=== PATIENT | female | born 1935 | race African-American/Black ===

== ENCOUNTER 2016-12-20 08:32 | Inpatient (IN) | payer MEDICARE, MEDICAID ==
[~2016-12-20] VITALS: Ht 167.6 cm; Wt 66.5 kg
--- NOTE | 2016-12-20 09:21 | RAD ---
Indication weakness. Fall. A single view of the chest was obtained. No prior imaging of the chest is available. Inspiratory effort is suboptimal. Heart size and pulmonary vessels are within normal limits. Slightly tortuous thoracic aorta is noted. A focal infiltrate in either lung is not seen. Significant pleural fluid is not seen. There is no pneumothorax. The visualized bony structures appear grossly intact. IMPRESSION: No acute or focal process seen in the chest
--- NOTE | 2016-12-20 09:30 | PHYS DOC ---
Past Medical History Past Medical History: Dementia, High Cholesterol, Hypertension, Seizure Adult General Chief Complaint Chief Complaint: WEAKNESS/GENERALIZED HPI HPI Patient is a 81 year old female who presents with generalized weakness. History provided by patient's daughter (with whom she lives). She reports patient had gotten up and walked to the bathroom (ambulates without walker/ assistance at baseline) and sat down on the toilet. After she stood up she walked over to the sink to wash her hands, and then became too weak to stand. The daughter grabbed her and held her so as to keep her from falling. Daughter says patient has not been sick and denies any other acute problems. Patient nonverbal, does not follow commands at baseline (h/o dementia). Review of Systems Review of Systems Unable to obtain ROS due to dementia Per daughter: generalized weakness Current Medications Current Medications Allergies Allergies Allergies Coded Allergies Type Severity Reaction Last Updated Verified Penicillins Allergy Intermediate 12/20/16 Yes Physical Exam Physical Exam Constitutional: Well developed, well nourished, no acute distress, non-toxic appearance HENT: Normocephalic, atraumatic, bilateral external ears normal Eyes: PERRL, EOMI, conjunctiva normal, no discharge Neck: Normal range of motion, no stridor Cardiovascular: Heart rate normal, regular rhythm, no murmur Lungs & Thorax: Bilateral breath sounds clear to auscultation Abdomen: Bowel sounds normal, soft, non-distended, no apparent TTP Skin: Warm, dry, no erythema, no rash Extremities: No obvious deformity, no edema Neurologic: Awake, alert, nonverbal, does not follow commands, move BUE spontaneously Current Patient Data Vital Signs Vital Signs Date Time Temp Pulse Resp B/P Pulse Ox O2 Delivery O2 Flow Rate FiO2 12/20/16 08:32 97.6 69 18 134/70 95 Room Air 97.6 Lab Values Laboratory Tests Test 12/20/16 09:43 12/20/16 10:38 White Blood Count 4.9x10^3/uL (4.0-11.0) Red Blood Count 4.33x10^6/uL (3.50-5.40) Hemoglobin 13.0g/dL (12.0-15.5) Hematocrit 39.3% (36.0-47.0) Mean Corpuscular Volume 91fL (79-100) Mean Corpuscular Hemoglobin 30pg (25-35) Mean Corpuscular Hemoglobin Concent 33g/dL (31-37) Red Cell Distribution Width 12.8% (11.5-14.5) Platelet Count 165x10^3/uL (140-400) Neutrophils (%) (Auto) 54% (31-73) Lymphocytes (%) (Auto) 31% (24-48) Monocytes (%) (Auto) 8% (0-9) Eosinophils (%) (Auto) 7% (0-3) H Basophils (%) (Auto) 1% (0-3) Neutrophils # (Auto) 2.7x10^3uL (1.8-7.7) Lymphocytes # (Auto) 1.5x10^3/uL (1.0-4.8) Monocytes # (Auto) 0.4x10^3/uL (0.0-1.1) Eosinophils # (Auto) 0.3x10^3/uL (0.0-0.7) Basophils # (Auto) 0.0x10^3/uL (0.0-0.2) Sodium Level 146mmol/L (136-145) H Potassium Level 3.8mmol/L (3.5-5.1) Chloride Level 106mmol/L (98-107) Carbon Dioxide Level 32mmol/L (21-32) Anion Gap 8 (6-14) Blood Urea Nitrogen 19mg/dL (7-20) Creatinine 1.1mg/dL (0.6-1.0) H Estimated GFR (Cockcroft-Gault) 47.8 BUN/Creatinine Ratio 17 (6-20) Glucose Level 89mg/dL (70-99) Calcium Level 9.8mg/dL (8.5-10.1) Total Bilirubin 0.8mg/dL (0.2-1.0) Aspartate Amino Transferase (AST) 14U/L (15-37) L Alanine Aminotransferase (ALT) 18U/L (14-59) Alkaline Phosphatase 89U/L (46-116) Total Protein 7.9g/dL (6.4-8.2) Albumin 3.7g/dL (3.4-5.0) Albumin/Globulin Ratio 0.9 (1.0-1.7) L Urine Collection Type Unknown Urine Color Yellow Urine Clarity Clear Urine pH 6.0 Urine Specific [place] 1.025 Urine Protein Negativemg/dL (NEG-TRACE) Urine Glucose (UA) Negativemg/dL (NEG) Urine Ketones (Stick) Tracemg/dL (NEG) Urine Blood Negative (NEG) Urine Nitrite Positive (NEG) Urine Bilirubin Small (NEG) Urine Urobilinogen Dipstick 1.0mg/dL (0.2 mg/dL) Urine Leukocyte Esterase Small (NEG) Urine RBC 1-2/HPF (0-2) Urine WBC 5-10/HPF (0-4) Urine Squamous Epithelial Cells Few/LPF Urine Bacteria Many/HPF (0-FEW) Urine Mucus Slight/LPF Laboratory Tests 12/20/16 09:43 Laboratory Tests 12/20/16 09:43 EKG EKG EKG (my read): sinus rhythm, rate 64, LAD, intervals wnl, no acute ischemic changes Radiology/Procedures Radiology/Procedures CXR: IMPRESSION: No acute or focal process seen in the chest CT head: IMPRESSION: Chronic changes. Intracranially no acute finding is seen Course & Med Decision Making Course & Med Decision Making Pertinent Labs and Imaging studies reviewed. (See chart for details) Patient is 81-year-old female who presents with generalized weakness. Will check EKG, chest x-ray, CT head, labs to evaluate. Imaging results as above. EKG okay per my read. Imaging results as above. Blood work unremarkable, UA indicative of UTI. Dose of Rocephin ordered. Discussed results with patient's daughter. As she is too weak to ambulate and lives at home with her daughter who is unable to care for her when she is this weak, she will need admission to the hospital. Discussed with Dr. Flores, will admit under her care for further evaluation and treatment. Dragon Disclaimer Dragon Disclaimer This electronic medical record was generated, in whole or in part, using a voice recognition dictation system. Departure Departure Impression: Primary Impression: UTI (urinary tract infection) Additional Impressions: Weakness Unable to ambulate Disposition: ADMITTED INPATIENT Admitting Physician: Mary Flores Condition: STABLE Problem Qualifiers PRAKASH FABIAN MD Dec 20, 2016 09:30
[2016-12-20 09:57] LABS: BASO % 1 % (0-3); EOS % 7 % (0-3); HEMATOCRIT 39.3 % (36.0-47.0); LYMPH # 1.5 x10^3/uL (1.0-4.8); LYMPH % 31 % (24-48); MEAN CORPUSCULAR HEMOGLOBIN 30 pg (25-35); MEAN CORPUSCULAR HGB CONC 33 g/dL (31-37); MEAN CORPUSCULAR VOLUME 91 fL (79-100); MONO % 8 % (0-9); NEUT % 54 % (31-73); PLATELET COUNT 165 x10^3/uL (140-400); RED BLOOD COUNT 4.33 x10^6/uL (3.50-5.40); RED CELL DISTRIBUTION WIDTH 12.8 % (11.5-14.5); WHITE BLOOD COUNT 4.9 x10^3/uL (4.0-11.0)
[2016-12-20 10:10] LABS: CALCIUM 9.8 mg/dL (8.5-10.1); CREATININE 1.1 mg/dL (0.6-1.0); GFR 47.8; POTASSIUM 3.8 mmol/L (3.5-5.1)
[2016-12-20 10:16] LABS: ALBUMIN 3.7 g/dL (3.4-5.0); ALBUMIN/GLOBULIN RATIO 0.9 (1.0-1.7); TOTAL BILIRUBIN 0.8 mg/dL (0.2-1.0); TOTAL PROTEIN 7.9 g/dL (6.4-8.2)
[2016-12-20 11:09] LABS: BILIRUBIN,URINE SMALL (NEG); GLUCOSE,URINE NEGATIVE (NEG); NITRITE,URINE POSITIVE (NEG); PROTEIN,URINE NEGATIVE (NEG-TRACE)
--- NOTE | 2016-12-20 11:20 | EKG ---
[facility] [address] [place] [address] Test Date: 2016-12-20 Test Time: 09:18:03 Pat Name: RADHA PHIPPS Department: Room: Gender: F Student Development Dean: : [id number] Requested By: PRAKASH FABIAN Order Number: [id number] Reading MD: Measurements Intervals [place] Rate: 64 P: 54 GA: 186 QRS: -12 QRSD: 78 T: 49 QT: 404 QTc: 421 Interpretive Statements SINUS RHYTHM LEFTWARD AXIS QRS(T) CONTOUR ABNORMALITY CONSIDER ANTEROSEPTAL MYOCARDIAL DAMAGE RI6.01 Unconfirmed report No previous ECG available for comparison
[2016-12-20 11:35] LABS: BACTERIA,URINE MANY /HPF (0-FEW); SQUAMOUS EPITHELIAL CELL,UR FEW /LPF
--- NOTE | 2016-12-20 11:42 | RAD ---
Indication weakness. Change in mental status. Prior history of seizures. Noncontrast images of the head were obtained. No prior imaging of the head is available. The calvarium appears unremarkable. The visualized paranasal sinuses appear normal. There is no subdural or epidural hematoma. There is some underlying atrophy. There is some increased lucency in the deep white matter likely reflecting microvascular disease. There is no mass or midline shift. No hemorrhage is seen. There is some increased density, symmetric, involving both globes.. This may be artifactual. Clinical correlation as to visual difficulty advised. IMPRESSION: Chronic changes. Intracranially no acute finding is seen PQRS Compliance Statement: One or more of the following individualized dose reduction techniques were utilized for this examination: 1. Automated exposure control 2. Adjustment of the mA and/or kV according to patient size 3. Use of iterative reconstruction technique
[2016-12-20] MEDS ORDERED: ONDANSETRON PF 4 MG/2 ML VIAL. IV PRN ×2 (12:15→14:49)
[2016-12-20] MEDS ORDERED: CEFTRIAXONE 1GM IVPB FOR OMNI 50 ML IV ONE (12:15)
[2016-12-20] MEDS ORDERED: ACETAMINOPHEN 325 MG TABLET. PO PRN (12:15)
[2016-12-20 13:00] VITALS: BP 160/46
[2016-12-20] MEDS ORDERED: MEMA10TA PO (14:08)
[2016-12-20] MEDS ORDERED: LISI20TA PO (14:08)
[2016-12-20] MEDS ORDERED: LOSA1TAB18 PO (14:08)
[2016-12-20] MEDS ORDERED: DONE10TA34 PO (14:08)
[2016-12-20] MEDS ORDERED: SIMV20TA PO (14:08)
[2016-12-20] MEDS ORDERED: LEVE500T56 PO (14:08)
[2016-12-20] MEDS ORDERED: ASPI81TA2 PO (14:08)
[2016-12-20] MEDS ORDERED: NIFE90TA9 PO (14:08)
[2016-12-20 15:00] VITALS: BP 146/66
--- NOTE | 2016-12-20 15:37 | PDOC1 ---
History and Physical Date of Admission Date of Admission DATE: 12/20/16 TIME: 15:29 Identification/Chief Complaint Chief Complaint weak Source Source: Caregiver, Chart review History of Present Illness History of Present Illness 81 y./o AA female, accompanied by dtr today, lives at home with dtr, so weak today, cant do her usual daily activities,. AT ER, found UTI, all labs ok, PT hence admitted. DTr seems to be hesitant to snu but is agreeable if really needed. She is trying to feed her mom, pt does not verbalize anything though not aggressive and not in distress but does not know where she is. HAs dementia based on home meds, PCP Dr. Funez Past Medical History Cardiovascular: HTN, Hyperlipidemia CENTRAL NERVOUS SYSTEM: Dementia Past Surgical History Past Surgical History: No pertinent history Family History Family History: Family History Unknown Social History Smoke: No ALCOHOL: none Drugs: None Current Problem List Problem List Problems Medical Problems: (1) Unable to ambulate Status: Acute (2) UTI (urinary tract infection) Status: Acute (3) Weakness Status: Acute Problems: Current Medications Current Medications Current Medications Ceftriaxone Sodium (Rocephin 1gm Ivpb For Omni) 50 ml @ 100 mls/hr 1X ONCE IV Last administered on 12/20/16t 12:20; Start 12/20/16 at 12:15; Stop 12/20/16 at 12:44; Status DC Ondansetron HCl (Zofran) 4 mg PRN Q8HRS PRN IV NAUSEA/VOMITING; Start 12/20/16 at 12:15; Stop 12/20/16 at 14:51; Status DC Acetaminophen (Tylenol) 650 mg PRN Q4HRS PRN PO FEVER; Start 12/20/16 at 12:15 ; Stop 12/21/16 at 12:14 Ondansetron HCl (Zofran) 4 mg PRN Q6HRS PRN IV NAUSEA/VOMITING; Start 12/20/16 at 14:49 Aspirin (Children'S Aspirin) 81 mg DAILY PO ; Start 12/21/16 at 09:00 Donepezil HCl (Aricept) 10 mg QHS PO ; Start 12/20/16 at 21:00 Levetiracetam (Keppra) 500 mg BID PO ; Start 12/20/16 at 21:00 Lisinopril (Prinivil) 20 mg DAILY PO ; Start 12/21/16 at 09:00 Memantine (Namenda) 10 mg BID PO ; Start 12/20/16 at 21:00 Simvastatin (Zocor) 20 mg QHS PO ; Start 12/20/16 at 21:00 Losartan Potassium (Cozaar) 100 mg DAILY PO ; Start 12/21/16 at 09:00 Nifedipine 90 mg 90 mg DAILY PO ; Start 12/21/16 at 09:00 Ceftriaxone Sodium/Sodium Chloride (Rocephin/Iv Sodium Chloride 0.9% 50ml) 50 ml @ 100 mls/hr Q24H IV ; Start 12/21/16 at 12:00 Hydrochlorothiazide (Microzide) 12.5 mg DAILY PO ; Start 12/21/16 at 09:00 Active Scripts Active Reported Aricept (Donepezil Hcl) 10 Mg Tablet 1 Tab PO QHS Zocor (Simvastatin) 20 Mg Tablet 1 Tab PO QHS Prinivil (Lisinopril) 20 Mg Tablet 1 Tab PO DAILY Nifedipine Er (Nifedipine) 90 Mg Tab.er.24 90 Mg PO DAILY Aspirin 81 Mg Tab.chew 1 Tab PO DAILY Losartan-Hctz 100-12.5 Mg Tab (Losartan/Hydrochlorothiazide) 1 Each Tablet 1 Tab PO DAILY Namenda (Memantine Hcl) 10 Mg Tablet 1 Tab PO BID Keppra (Levetiracetam) 500 Mg Tablet 1.5 Tab PO BID Allergies Allergies: Coded Allergies: Penicillins (Verified Allergy, Intermediate, 12/20/16) ROS Review of System cant be obtained- has dementia Physical Exam General: Alert, Cooperative, No acute distress HEENT: Atraumatic, PERRLA, EOMI Lungs: Clear to auscultation, Normal air movement Heart: S1S2, RRR, no thrills, no rubs, no gallops, no murmurs Cardiovascular: S1 Breasts: Normal, Rt breast nml w/o mass, Lt breast nml w/o mass, Nipples normal Rectal Exam: not examined PELVIC: Nml ext genitalia Extremities: No clubbing, No cyanosis, No edema, Normal pulses, No tenderness/ swelling Skin: No rashes, No breakdown, No significant lesion Psych/Mental Status: Mental status NL, Mood NL Vitals Vitals Vital Signs Date Time Temp Pulse Resp B/P Pulse Ox O2 Delivery O2 Flow Rate FiO2 2/18/17 13:05 Room Air 12/20/16 13:00 97.7 56 16 160/46 93 97.7 Labs Labs Laboratory Tests Test 12/20/16 09:43 12/20/16 10:38 White Blood Count 4.9x10^3/uL (4.0-11.0) Red Blood Count 4.33x10^6/uL (3.50-5.40) Hemoglobin 13.0g/dL (12.0-15.5) Hematocrit 39.3% (36.0-47.0) Mean Corpuscular Volume 91fL (79-100) Mean Corpuscular Hemoglobin 30pg (25-35) Mean Corpuscular Hemoglobin Concent 33g/dL (31-37) Red Cell Distribution Width 12.8% (11.5-14.5) Platelet Count 165x10^3/uL (140-400) Neutrophils (%) (Auto) 54% (31-73) Lymphocytes (%) (Auto) 31% (24-48) Monocytes (%) (Auto) 8% (0-9) Eosinophils (%) (Auto) 7% (0-3) Basophils (%) (Auto) 1% (0-3) Neutrophils # (Auto) 2.7x10^3uL (1.8-7.7) Lymphocytes # (Auto) 1.5x10^3/uL (1.0-4.8) Monocytes # (Auto) 0.4x10^3/uL (0.0-1.1) Eosinophils # (Auto) 0.3x10^3/uL (0.0-0.7) Basophils # (Auto) 0.0x10^3/uL (0.0-0.2) Sodium Level 146mmol/L (136-145) Potassium Level 3.8mmol/L (3.5-5.1) Chloride Level 106mmol/L (98-107) Carbon Dioxide Level 32mmol/L (21-32) Anion Gap 8 (6-14) Blood Urea Nitrogen 19mg/dL (7-20) Creatinine 1.1mg/dL (0.6-1.0) Estimated GFR (Cockcroft-Gault) 47.8 BUN/Creatinine Ratio 17 (6-20) Glucose Level 89mg/dL (70-99) Calcium Level 9.8mg/dL (8.5-10.1) Total Bilirubin 0.8mg/dL (0.2-1.0) Aspartate Amino Transf (AST/SGOT) 14U/L (15-37) Alanine Aminotransferase (ALT/SGPT) 18U/L (14-59) Alkaline Phosphatase 89U/L (46-116) Total Protein 7.9g/dL (6.4-8.2) Albumin 3.7g/dL (3.4-5.0) Albumin/Globulin Ratio 0.9 (1.0-1.7) Urine Collection Type Unknown Urine Color Yellow Urine Clarity Clear Urine pH 6.0 Urine Specific [place] 1.025 Urine Protein Negativemg/dL (NEG-TRACE) Urine Glucose (UA) Negativemg/dL (NEG) Urine Ketones (Stick) Tracemg/dL (NEG) Urine Blood Negative (NEG) Urine Nitrite Positive (NEG) Urine Bilirubin Small (NEG) Urine Urobilinogen Dipstick 1.0mg/dL (0.2 mg/dL) Urine Leukocyte Esterase Small (NEG) Urine RBC 1-2/HPF (0-2) Urine WBC 5-10/HPF (0-4) Urine Squamous Epithelial Cells Few/LPF Urine Bacteria Many/HPF (0-FEW) Urine Mucus Slight/LPF Laboratory Tests Test 12/20/16 09:43 12/20/16 10:38 White Blood Count 4.9x10^3/uL (4.0-11.0) Red Blood Count 4.33x10^6/uL (3.50-5.40) Hemoglobin 13.0g/dL (12.0-15.5) Hematocrit 39.3% (36.0-47.0) Mean Corpuscular Volume 91fL (79-100) Mean Corpuscular Hemoglobin 30pg (25-35) Mean Corpuscular Hemoglobin Concent 33g/dL (31-37) Red Cell Distribution Width 12.8% (11.5-14.5) Platelet Count 165x10^3/uL (140-400) Neutrophils (%) (Auto) 54% (31-73) Lymphocytes (%) (Auto) 31% (24-48) Monocytes (%) (Auto) 8% (0-9) Eosinophils (%) (Auto) 7% (0-3) Basophils (%) (Auto) 1% (0-3) Neutrophils # (Auto) 2.7x10^3uL (1.8-7.7) Lymphocytes # (Auto) 1.5x10^3/uL (1.0-4.8) Monocytes # (Auto) 0.4x10^3/uL (0.0-1.1) Eosinophils # (Auto) 0.3x10^3/uL (0.0-0.7) Basophils # (Auto) 0.0x10^3/uL (0.0-0.2) Sodium Level 146mmol/L (136-145) Potassium Level 3.8mmol/L (3.5-5.1) Chloride Level 106mmol/L (98-107) Carbon Dioxide Level 32mmol/L (21-32) Anion Gap 8 (6-14) Blood Urea Nitrogen 19mg/dL (7-20) Creatinine 1.1mg/dL (0.6-1.0) Estimated GFR (Cockcroft-Gault) 47.8 BUN/Creatinine Ratio 17 (6-20) Glucose Level 89mg/dL (70-99) Calcium Level 9.8mg/dL (8.5-10.1) Total Bilirubin 0.8mg/dL (0.2-1.0) Aspartate Amino Transf (AST/SGOT) 14U/L (15-37) Alanine Aminotransferase (ALT/SGPT) 18U/L (14-59) Alkaline Phosphatase 89U/L (46-116) Total Protein 7.9g/dL (6.4-8.2) Albumin 3.7g/dL (3.4-5.0) Albumin/Globulin Ratio 0.9 (1.0-1.7) Urine Collection Type Unknown Urine Color Yellow Urine Clarity Clear Urine pH 6.0 Urine Specific [place] 1.025 Urine Protein Negativemg/dL (NEG-TRACE) Urine Glucose (UA) Negativemg/dL (NEG) Urine Ketones (Stick) Tracemg/dL (NEG) Urine Blood Negative (NEG) Urine Nitrite Positive (NEG) Urine Bilirubin Small (NEG) Urine Urobilinogen Dipstick 1.0mg/dL (0.2 mg/dL) Urine Leukocyte Esterase Small (NEG) Urine RBC 1-2/HPF (0-2) Urine WBC 5-10/HPF (0-4) Urine Squamous Epithelial Cells Few/LPF Urine Bacteria Many/HPF (0-FEW) Urine Mucus Slight/LPF VTE Prophylaxis Ordered VTE Prophylaxis Devices: Yes VTE Pharmacological Prophylaxi: Yes Assessment/Plan Assessment/Plan 1. UTI in a geriatric 2, Gen weakness 3. Metabolic encephalopathy sec to dementia and infection 4. HTN 5. Advanced dementia 6. Allergy to PCN but tolerated rocephin fine PLAn: COnt iV rocephin Urine cx PT/OT Resume home meds SW SNU screen Dw dtr at bedside and RN MURTAZA ALEMAN MD Dec 20, 2016 15:37
--- NOTE | 2016-12-20 16:39 | ACF ---
Admission Forms Criteria URINARY COMPLICATIONS Clinical Indications for Inpatient Care (Place 'X' for any and all applicable criteria): Ongoing inpatient care may be indicated for urinary complications with ANY ONE of the following: [X]I. Urinary tract infection requiring inpatient care as indicated by ANY ONE of the following(8)(19)(20): [ ]a) Severe symptoms (eg, high fever, severe pain) [ ]b) Vomiting or dehydration requiring ongoing inpatient care [X]c) IV antibiotic needs that cannot be managed at lower level of care [ ]d) Hemodynamic instability [ ]e) Obstruction of collecting system by stone or tumor [ ]II. Urinary retention requiring drainage or surgery (3)(4)(5)(17)(18) [ ]III. Renal failure (Use Renal Failure Criteria for further information.) [ ]IV. Oliguria(30) [ ]V. Post obstructive diuresis requiring close monitoring of urine output and intravenous compensation for excessive fluid losses(33) Extended stay beyond goal length of stay for primary condition may be needed until ALL of the following are present(3)(4)(5)(8): [ ]a) Renal function (creatinine) at baseline, or daily decreases in creatinine consistent with renal function return [ ]b) Voiding adequately or with urinary catheter or percutaneous suprapubic tube and management regimen in place that is performable at lower level of care. [ ]c) Urine output adequate [ ]d) Fever absent or resolving [ ]e) Infection absent or treatable at next level of care The original [employer] content created by [employer] has been revised. The portions of the content which have been revised are identified through the use of italic text or in bold, and [facility] has neither reviewed nor approved the modified material. All other unmodified content is copyright [employer] Please see references footnoted in the original [email or web address] edition 2016 Admission Criteria Met?: Yes MEHUL ENCISO Dec 20, 2016 16:39
[2016-12-20 19:25] VITALS: BP 123/57
[2016-12-20] MEDS: LEVETIRACETAM 500 MG TABLET PO SCH (20:44)
[2016-12-20] MEDS: MEMANTINE 10 MG TABLET. PO SCH (20:45)
[2016-12-20] MEDS: DONEPEZIL HCL 10 MG TABLET. PO SCH (20:45)
[2016-12-20] MEDS: SIMVASTATIN 20 MG TABLET PO SCH (20:45)
[2016-12-20] MEDS ORDERED: LEVETIRACETAM 500 MG TABLET PO SCH (21:00)
[2016-12-20 23:25] VITALS: BP 118/58
[2016-12-21 03:25] VITALS: BP 116/56
[2016-12-21 06:17] LABS: BASO % 1 % (0-3); EOS % 6 % (0-3); HEMATOCRIT 35.7 % (36.0-47.0); HEMOGLOBIN 11.7 g/dL (12.0-15.5); LYMPH # 1.3 x10^3/uL (1.0-4.8); LYMPH % 33 % (24-48); MEAN CORPUSCULAR HEMOGLOBIN 30 pg (25-35); MEAN CORPUSCULAR HGB CONC 33 g/dL (31-37); MEAN CORPUSCULAR VOLUME 93 fL (79-100); MONO % 9 % (0-9); NEUT % 52 % (31-73); PLATELET COUNT 145 x10^3/uL (140-400); RED BLOOD COUNT 3.86 x10^6/uL (3.50-5.40); RED CELL DISTRIBUTION WIDTH 12.9 % (11.5-14.5); WHITE BLOOD COUNT 4.1 x10^3/uL (4.0-11.0)
[2016-12-21 07:00] VITALS: BP 108/63
[2016-12-21 07:12] LABS: CALCIUM 9.2 mg/dL (8.5-10.1); CREATININE 0.9 mg/dL (0.6-1.0); GFR 72.9; POTASSIUM 4.1 mmol/L (3.5-5.1)
[2016-12-21] MEDS: HYDROCHLOROTHIAZIDE 12.5 MG CAPSULE. PO SCH (09:00)
[2016-12-21] MEDS: LISINOPRIL 20 MG TABLET PO SCH (09:00)
[2016-12-21] MEDS: ASPIRIN 81 MG TAB.CHEW PO SCH (09:27)
[2016-12-21] MEDS: MEMANTINE 10 MG TABLET. PO SCH ×2 (09:27→21:09)
[2016-12-21] MEDS: LOSARTAN POTASSIUM 50 MG TABLET. PO SCH (09:28)
[2016-12-21] MEDS: NIFEDIPINE ER 30 MG TAB.ER.24H PO SCH (09:28)
[2016-12-21] MEDS: LEVETIRACETAM 500 MG TABLET PO SCH ×2 (09:29→21:06)
[2016-12-21 11:22] VITALS: BP 112/62
--- NOTE | 2016-12-21 11:27 | PDOC ---
PROGRESS NOTES Chief Complaint Chief Complaint 1. UTI in a geriatric 2, Gen weakness 3. Metabolic encephalopathy sec to dementia and infection 4. HTN 5. Advanced dementia 6. Allergy to PCN but tolerated rocephin fine 7. Hypernatremia sec to poor pO History of Present Illness History of Present Illness Dtr not at bedside Na 150, minimal PO Pt might sometimes need aid to feed Confused, playing with the sheets with her fingers Urine cx still pending NO fevers or white ct PLAn: COnt IV rocpehin - tolerating PCN fine despite documenetd allergy to PCN Await urine cx Encourage PO - to address hypernatremia SW - if dtr will agree to SNU - I may have my doubts but dtr might be open to this Vitals Vitals Vital Signs Date Time Temp Pulse Resp B/P Pulse Ox O2 Delivery O2 Flow Rate FiO2 12/21/16 11:22 98.8 83 16 112/62 99 Room Air 98.8 Physical Exam General: Alert, Cooperative, No acute distress Extremities: No clubbing, No cyanosis, No edema, Normal pulses, No tenderness/ swelling Skin: No rashes, No breakdown, No significant lesion Labs LABS Laboratory Tests Test 12/21/16 05:25 White Blood Count 4.1x10^3/uL (4.0-11.0) Red Blood Count 3.86x10^6/uL (3.50-5.40) Hemoglobin 11.7g/dL (12.0-15.5) Hematocrit 35.7% (36.0-47.0) Mean Corpuscular Volume 93fL (79-100) Mean Corpuscular Hemoglobin 30pg (25-35) Mean Corpuscular Hemoglobin Concent 33g/dL (31-37) Red Cell Distribution Width 12.9% (11.5-14.5) Platelet Count 145x10^3/uL (140-400) Neutrophils (%) (Auto) 52% (31-73) Lymphocytes (%) (Auto) 33% (24-48) Monocytes (%) (Auto) 9% (0-9) Eosinophils (%) (Auto) 6% (0-3) Basophils (%) (Auto) 1% (0-3) Neutrophils # (Auto) 2.1x10^3uL (1.8-7.7) Lymphocytes # (Auto) 1.3x10^3/uL (1.0-4.8) Monocytes # (Auto) 0.3x10^3/uL (0.0-1.1) Eosinophils # (Auto) 0.3x10^3/uL (0.0-0.7) Basophils # (Auto) 0.0x10^3/uL (0.0-0.2) Sodium Level 150mmol/L (136-145) Potassium Level 4.1mmol/L (3.5-5.1) Chloride Level 111mmol/L (98-107) Carbon Dioxide Level 28mmol/L (21-32) Anion Gap 11 (6-14) Blood Urea Nitrogen 17mg/dL (7-20) Creatinine 0.9mg/dL (0.6-1.0) Estimated GFR (Cockcroft-Gault) 72.9 Glucose Level 86mg/dL (70-99) Calcium Level 9.2mg/dL (8.5-10.1) Review of Systems Review of Systems cant be obtained -dementia Assessment and Plan Assessmemt and Plan Problems Medical Problems: (1) Unable to ambulate Status: Acute (2) UTI (urinary tract infection) Status: Acute (3) Weakness Status: Acute Problems: Comment Review of Relevant I have reviewed the following items adam (where applicable) has been applied. Labs Laboratory Tests Test 12/20/16 09:43 12/20/16 10:38 12/21/16 05:25 White Blood Count 4.9x10^3/uL (4.0-11.0) 4.1x10^3/uL (4.0-11.0) Red Blood Count 4.33x10^6/uL (3.50-5.40) 3.86x10^6/uL (3.50-5.40) Hemoglobin 13.0g/dL (12.0-15.5) 11.7g/dL (12.0-15.5) Hematocrit 39.3% (36.0-47.0) 35.7% (36.0-47.0) Mean Corpuscular Volume 91fL (79-100) 93fL (79-100) Mean Corpuscular Hemoglobin 30pg (25-35) 30pg (25-35) Mean Corpuscular Hemoglobin Concent 33g/dL (31-37) 33g/dL (31-37) Red Cell Distribution Width 12.8% (11.5-14.5) 12.9% (11.5-14.5) Platelet Count 165x10^3/uL (140-400) 145x10^3/uL (140-400) Neutrophils (%) (Auto) 54% (31-73) 52% (31-73) Lymphocytes (%) (Auto) 31% (24-48) 33% (24-48) Monocytes (%) (Auto) 8% (0-9) 9% (0-9) Eosinophils (%) (Auto) 7% (0-3) 6% (0-3) Basophils (%) (Auto) 1% (0-3) 1% (0-3) Neutrophils # (Auto) 2.7x10^3uL (1.8-7.7) 2.1x10^3uL (1.8-7.7) Lymphocytes # (Auto) 1.5x10^3/uL (1.0-4.8) 1.3x10^3/uL (1.0-4.8) Monocytes # (Auto) 0.4x10^3/uL (0.0-1.1) 0.3x10^3/uL (0.0-1.1) Eosinophils # (Auto) 0.3x10^3/uL (0.0-0.7) 0.3x10^3/uL (0.0-0.7) Basophils # (Auto) 0.0x10^3/uL (0.0-0.2) 0.0x10^3/uL (0.0-0.2) Sodium Level 146mmol/L (136-145) 150mmol/L (136-145) Potassium Level 3.8mmol/L (3.5-5.1) 4.1mmol/L (3.5-5.1) Chloride Level 106mmol/L (98-107) 111mmol/L (98-107) Carbon Dioxide Level 32mmol/L (21-32) 28mmol/L (21-32) Anion Gap 8 (6-14) 11 (6-14) Blood Urea Nitrogen 19mg/dL (7-20) 17mg/dL (7-20) Creatinine 1.1mg/dL (0.6-1.0) 0.9mg/dL (0.6-1.0) Estimated GFR (Cockcroft-Gault) 47.8 72.9 BUN/Creatinine Ratio 17 (6-20) Glucose Level 89mg/dL (70-99) 86mg/dL (70-99) Calcium Level 9.8mg/dL (8.5-10.1) 9.2mg/dL (8.5-10.1) Total Bilirubin 0.8mg/dL (0.2-1.0) Aspartate Amino Transf (AST/SGOT) 14U/L (15-37) Alanine Aminotransferase (ALT/SGPT) 18U/L (14-59) Alkaline Phosphatase 89U/L (46-116) Total Protein 7.9g/dL (6.4-8.2) Albumin 3.7g/dL (3.4-5.0) Albumin/Globulin Ratio 0.9 (1.0-1.7) Urine Collection Type Unknown Urine Color Yellow Urine Clarity Clear Urine pH 6.0 Urine Specific [place] 1.025 Urine Protein Negativemg/dL (NEG-TRACE) Urine Glucose (UA) Negativemg/dL (NEG) Urine Ketones (Stick) Tracemg/dL (NEG) Urine Blood Negative (NEG) Urine Nitrite Positive (NEG) Urine Bilirubin Small (NEG) Urine Urobilinogen Dipstick 1.0mg/dL (0.2 mg/dL) Urine Leukocyte Esterase Small (NEG) Urine RBC 1-2/HPF (0-2) Urine WBC 5-10/HPF (0-4) Urine Squamous Epithelial Cells Few/LPF Urine Bacteria Many/HPF (0-FEW) Urine Mucus Slight/LPF Laboratory Tests Test 12/21/16 05:25 White Blood Count 4.1x10^3/uL (4.0-11.0) Red Blood Count 3.86x10^6/uL (3.50-5.40) Hemoglobin 11.7g/dL (12.0-15.5) Hematocrit 35.7% (36.0-47.0) Mean Corpuscular Volume 93fL (79-100) Mean Corpuscular Hemoglobin 30pg (25-35) Mean Corpuscular Hemoglobin Concent 33g/dL (31-37) Red Cell Distribution Width 12.9% (11.5-14.5) Platelet Count 145x10^3/uL (140-400) Neutrophils (%) (Auto) 52% (31-73) Lymphocytes (%) (Auto) 33% (24-48) Monocytes (%) (Auto) 9% (0-9) Eosinophils (%) (Auto) 6% (0-3) Basophils (%) (Auto) 1% (0-3) Neutrophils # (Auto) 2.1x10^3uL (1.8-7.7) Lymphocytes # (Auto) 1.3x10^3/uL (1.0-4.8) Monocytes # (Auto) 0.3x10^3/uL (0.0-1.1) Eosinophils # (Auto) 0.3x10^3/uL (0.0-0.7) Basophils # (Auto) 0.0x10^3/uL (0.0-0.2) Sodium Level 150mmol/L (136-145) Potassium Level 4.1mmol/L (3.5-5.1) Chloride Level 111mmol/L (98-107) Carbon Dioxide Level 28mmol/L (21-32) Anion Gap 11 (6-14) Blood Urea Nitrogen 17mg/dL (7-20) Creatinine 0.9mg/dL (0.6-1.0) Estimated GFR (Cockcroft-Gault) 72.9 Glucose Level 86mg/dL (70-99) Calcium Level 9.2mg/dL (8.5-10.1) Medications Current Medications Ceftriaxone Sodium (Rocephin 1gm Ivpb For Omni) 50 ml @ 100 mls/hr 1X ONCE IV Last administered on 12/20/16t 12:20; Start 12/20/16 at 12:15; Stop 12/20/16 at 12:44; Status DC Ondansetron HCl (Zofran) 4 mg PRN Q8HRS PRN IV NAUSEA/VOMITING; Start 12/20/16 at 12:15; Stop 12/20/16 at 14:51; Status DC Acetaminophen (Tylenol) 650 mg PRN Q4HRS PRN PO FEVER; Start 12/20/16 at 12:15 ; Stop 12/21/16 at 12:14 Ondansetron HCl (Zofran) 4 mg PRN Q6HRS PRN IV NAUSEA/VOMITING; Start 12/20/16 at 14:49 Aspirin (Children'S Aspirin) 81 mg DAILY PO Last administered on 12/21/16 09: 27; Start 12/21/16 at 09:00 Donepezil HCl (Aricept) 10 mg QHS PO Last administered on 12/20/16 20:45; Start 12/20/16 at 21:00 Levetiracetam (Keppra) 500 mg BID PO ; Start 12/20/16 at 21:00; Stop 12/20/16 at 21:00; Status DC Lisinopril (Prinivil) 20 mg DAILY PO ; Start 12/21/16 at 09:00 Memantine (Namenda) 10 mg BID PO Last administered on 12/21/16 09:27; Start at 21:00 Simvastatin (Zocor) 20 mg QHS PO Last administered on 12/20/16 20:45; Start at 21:00 Losartan Potassium (Cozaar) 100 mg DAILY PO Last administered on 12/21/16 09: 28; Start 12/21/16 at 09:00 Nifedipine 90 mg 90 mg DAILY PO Last administered on 12/21/16 09:28; Start at 09:00 Ceftriaxone Sodium/Sodium Chloride (Rocephin/Iv Sodium Chloride 0.9% 50ml) 50 ml @ 100 mls/hr Q24H IV ; Start 12/21/16 at 12:00 Hydrochlorothiazide (Microzide) 12.5 mg DAILY PO ; Start 12/21/16 at 09:00 Levetiracetam (Keppra) 750 mg BID PO Last administered on 12/21/16 09:29; Start 12/20/16 at 21:00 Active Scripts Active Reported Aricept (Donepezil Hcl) 10 Mg Tablet 1 Tab PO QHS Zocor (Simvastatin) 20 Mg Tablet 1 Tab PO QHS Prinivil (Lisinopril) 20 Mg Tablet 1 Tab PO DAILY Nifedipine Er (Nifedipine) 90 Mg Tab.er.24 90 Mg PO DAILY Aspirin 81 Mg Tab.chew 1 Tab PO DAILY Losartan-Hctz 100-12.5 Mg Tab (Losartan/Hydrochlorothiazide) 1 Each Tablet 1 Tab PO DAILY Namenda (Memantine Hcl) 10 Mg Tablet 1 Tab PO BID Keppra (Levetiracetam) 500 Mg Tablet 1.5 Tab PO BID Vitals/I & O Vital Sign - Last 24 Hours 12/20/16 12/20/16 12/20/16 12/20/16 12:00 12:30 13:00 13:05 Temp 97.7 97.7 Pulse 78 66 56 Resp 20 20 16 B/P 147/91 152/82 160/46 Pulse Ox 95 95 93 O2 Delivery Room Air Room Air Room Air Room Air 12/20/16 12/20/16 12/20/16 12/20/16 15:00 19:25 20:00 23:25 Temp 97.6 97.9 97.7 97.6 97.9 97.7 Pulse 88 64 64 Resp 15 16 16 B/P 146/66 123/57 118/58 Pulse Ox 99 96 96 O2 Delivery Room Air Room Air Room Air Room Air 12/21/16 12/21/16 12/21/16 12/21/16 03:25 07:00 09:00 09:28 Temp 97.7 97.0 97.7 97.0 Pulse 63 70 70 70 Resp 16 16 B/P 116/56 108/63 108/63 108/63 Pulse Ox 97 93 O2 Delivery Room Air Room Air 12/21/16 12/21/16 09:28 11:22 Temp 98.8 98.8 Pulse 70 83 Resp 16 B/P 108/63 112/62 Pulse Ox 99 O2 Delivery Room Air Intake and Output 12/20/16 12/20/16 12/21/16 15:00 23:00 07:00 Intake Total 100 ml 500 ml Balance 100 ml 500 ml MURTAZA ALEMAN MD Dec 21, 2016 11:27
[2016-12-21] MEDS: CEFTRIAXONE SODIUM 1 GM in IV NORMAL SALINE 50ML 50 ML IV SCH (12:05)
[2016-12-21 15:00] VITALS: BP 110/75
[2016-12-21 19:40] VITALS: BP 106/48
[2016-12-21] MEDS: DONEPEZIL HCL 10 MG TABLET. PO SCH (21:04)
[2016-12-21] MEDS: SIMVASTATIN 20 MG TABLET PO SCH (21:04)
[2016-12-21 23:30] VITALS: BP 125/65
[2016-12-22 03:25] VITALS: BP 131/75
[2016-12-22 04:57] LABS: BASO % 1 % (0-3); EOS % 6 % (0-3); HEMATOCRIT 38.1 % (36.0-47.0); HEMOGLOBIN 12.5 g/dL (12.0-15.5); LYMPH # 1.4 x10^3/uL (1.0-4.8); LYMPH % 34 % (24-48); MEAN CORPUSCULAR HEMOGLOBIN 30 pg (25-35); MEAN CORPUSCULAR HGB CONC 33 g/dL (31-37); MEAN CORPUSCULAR VOLUME 93 fL (79-100); MONO % 8 % (0-9); NEUT % 51 % (31-73); PLATELET COUNT 149 x10^3/uL (140-400); RED BLOOD COUNT 4.12 x10^6/uL (3.50-5.40); RED CELL DISTRIBUTION WIDTH 12.8 % (11.5-14.5); WHITE BLOOD COUNT 4.2 x10^3/uL (4.0-11.0)
[2016-12-22 05:44] LABS: CALCIUM 9.4 mg/dL (8.5-10.1); CREATININE 0.9 mg/dL (0.6-1.0); GFR 72.9; POTASSIUM 3.9 mmol/L (3.5-5.1)
[2016-12-22 07:00] VITALS: BP 115/69
[2016-12-22] MEDS: NIFEDIPINE ER 30 MG TAB.ER.24H PO SCH (09:40)
[2016-12-22] MEDS: LISINOPRIL 20 MG TABLET PO SCH (09:41)
[2016-12-22] MEDS: LOSARTAN POTASSIUM 50 MG TABLET. PO SCH (09:41)
[2016-12-22] MEDS: ASPIRIN 81 MG TAB.CHEW PO SCH (09:41)
[2016-12-22] MEDS: HYDROCHLOROTHIAZIDE 12.5 MG CAPSULE. PO SCH (09:42)
[2016-12-22] MEDS: MEMANTINE 10 MG TABLET. PO SCH ×2 (09:42→20:36)
[2016-12-22] MEDS: LEVETIRACETAM 500 MG TABLET PO SCH ×2 (09:42→20:36)
[2016-12-22 10:58] VITALS: BP 139/61
--- NOTE | 2016-12-22 12:38 | PDOC ---
PROGRESS NOTES Chief Complaint Chief Complaint 1. UTI in a geriatric 2, Gen weakness 3. Metabolic encephalopathy sec to dementia and infection 4. HTN 5. Advanced dementia 6. Allergy to PCN but tolerated rocephin fine 7. Hypernatremia sec to poor pO History of Present Illness History of Present Illness Dtr not at bedside Na 150, minimal PO Pt might sometimes need aid to feed Confused, playing with the sheets with her fingers Urine cx still pending (the sensitivities ) - will be out later as dw micro NO fevers or white ct PLAn: COnt IV rocpehin - tolerating PCN fine despite documenetd allergy to PCN Await urine cx Encourage PO - to address hypernatremia Planned for home - dtr refuses SNU Vitals Vitals Vital Signs Date Time Temp Pulse Resp B/P Pulse Ox O2 Delivery O2 Flow Rate FiO2 12/22/16 10:58 97.9 75 17 139/61 98 Room Air 97.9 Physical Exam General: Alert, Cooperative, No acute distress Extremities: No clubbing, No cyanosis, No edema, Normal pulses, No tenderness/ swelling Skin: No rashes, No breakdown, No significant lesion Labs LABS Laboratory Tests Test 12/22/16 03:52 White Blood Count 4.2x10^3/uL (4.0-11.0) Red Blood Count 4.12x10^6/uL (3.50-5.40) Hemoglobin 12.5g/dL (12.0-15.5) Hematocrit 38.1% (36.0-47.0) Mean Corpuscular Volume 93fL (79-100) Mean Corpuscular Hemoglobin 30pg (25-35) Mean Corpuscular Hemoglobin Concent 33g/dL (31-37) Red Cell Distribution Width 12.8% (11.5-14.5) Platelet Count 149x10^3/uL (140-400) Neutrophils (%) (Auto) 51% (31-73) Lymphocytes (%) (Auto) 34% (24-48) Monocytes (%) (Auto) 8% (0-9) Eosinophils (%) (Auto) 6% (0-3) Basophils (%) (Auto) 1% (0-3) Neutrophils # (Auto) 2.1x10^3uL (1.8-7.7) Lymphocytes # (Auto) 1.4x10^3/uL (1.0-4.8) Monocytes # (Auto) 0.4x10^3/uL (0.0-1.1) Eosinophils # (Auto) 0.3x10^3/uL (0.0-0.7) Basophils # (Auto) 0.0x10^3/uL (0.0-0.2) Sodium Level 150mmol/L (136-145) Potassium Level 3.9mmol/L (3.5-5.1) Chloride Level 112mmol/L (98-107) Carbon Dioxide Level 27mmol/L (21-32) Anion Gap 11 (6-14) Blood Urea Nitrogen 14mg/dL (7-20) Creatinine 0.9mg/dL (0.6-1.0) Estimated GFR (Cockcroft-Gault) 72.9 Glucose Level 91mg/dL (70-99) Calcium Level 9.4mg/dL (8.5-10.1) Review of Systems Review of Systems cant be obtained demented Assessment and Plan Assessmemt and Plan Problems Medical Problems: (1) Unable to ambulate Status: Acute (2) UTI (urinary tract infection) Status: Acute (3) Weakness Status: Acute Problems: Comment Review of Relevant I have reviewed the following items adam (where applicable) has been applied. Labs Laboratory Tests Test 12/21/16 05:25 12/22/16 03:52 White Blood Count 4.1x10^3/uL (4.0-11.0) 4.2x10^3/uL (4.0-11.0) Red Blood Count 3.86x10^6/uL (3.50-5.40) 4.12x10^6/uL (3.50-5.40) Hemoglobin 11.7g/dL (12.0-15.5) 12.5g/dL (12.0-15.5) Hematocrit 35.7% (36.0-47.0) 38.1% (36.0-47.0) Mean Corpuscular Volume 93fL (79-100) 93fL (79-100) Mean Corpuscular Hemoglobin 30pg (25-35) 30pg (25-35) Mean Corpuscular Hemoglobin Concent 33g/dL (31-37) 33g/dL (31-37) Red Cell Distribution Width 12.9% (11.5-14.5) 12.8% (11.5-14.5) Platelet Count 145x10^3/uL (140-400) 149x10^3/uL (140-400) Neutrophils (%) (Auto) 52% (31-73) 51% (31-73) Lymphocytes (%) (Auto) 33% (24-48) 34% (24-48) Monocytes (%) (Auto) 9% (0-9) 8% (0-9) Eosinophils (%) (Auto) 6% (0-3) 6% (0-3) Basophils (%) (Auto) 1% (0-3) 1% (0-3) Neutrophils # (Auto) 2.1x10^3uL (1.8-7.7) 2.1x10^3uL (1.8-7.7) Lymphocytes # (Auto) 1.3x10^3/uL (1.0-4.8) 1.4x10^3/uL (1.0-4.8) Monocytes # (Auto) 0.3x10^3/uL (0.0-1.1) 0.4x10^3/uL (0.0-1.1) Eosinophils # (Auto) 0.3x10^3/uL (0.0-0.7) 0.3x10^3/uL (0.0-0.7) Basophils # (Auto) 0.0x10^3/uL (0.0-0.2) 0.0x10^3/uL (0.0-0.2) Sodium Level 150mmol/L (136-145) 150mmol/L (136-145) Potassium Level 4.1mmol/L (3.5-5.1) 3.9mmol/L (3.5-5.1) Chloride Level 111mmol/L (98-107) 112mmol/L (98-107) Carbon Dioxide Level 28mmol/L (21-32) 27mmol/L (21-32) Anion Gap 11 (6-14) 11 (6-14) Blood Urea Nitrogen 17mg/dL (7-20) 14mg/dL (7-20) Creatinine 0.9mg/dL (0.6-1.0) 0.9mg/dL (0.6-1.0) Estimated GFR (Cockcroft-Gault) 72.9 72.9 Glucose Level 86mg/dL (70-99) 91mg/dL (70-99) Calcium Level 9.2mg/dL (8.5-10.1) 9.4mg/dL (8.5-10.1) Laboratory Tests Test 12/22/16 03:52 White Blood Count 4.2x10^3/uL (4.0-11.0) Red Blood Count 4.12x10^6/uL (3.50-5.40) Hemoglobin 12.5g/dL (12.0-15.5) Hematocrit 38.1% (36.0-47.0) Mean Corpuscular Volume 93fL (79-100) Mean Corpuscular Hemoglobin 30pg (25-35) Mean Corpuscular Hemoglobin Concent 33g/dL (31-37) Red Cell Distribution Width 12.8% (11.5-14.5) Platelet Count 149x10^3/uL (140-400) Neutrophils (%) (Auto) 51% (31-73) Lymphocytes (%) (Auto) 34% (24-48) Monocytes (%) (Auto) 8% (0-9) Eosinophils (%) (Auto) 6% (0-3) Basophils (%) (Auto) 1% (0-3) Neutrophils # (Auto) 2.1x10^3uL (1.8-7.7) Lymphocytes # (Auto) 1.4x10^3/uL (1.0-4.8) Monocytes # (Auto) 0.4x10^3/uL (0.0-1.1) Eosinophils # (Auto) 0.3x10^3/uL (0.0-0.7) Basophils # (Auto) 0.0x10^3/uL (0.0-0.2) Sodium Level 150mmol/L (136-145) Potassium Level 3.9mmol/L (3.5-5.1) Chloride Level 112mmol/L (98-107) Carbon Dioxide Level 27mmol/L (21-32) Anion Gap 11 (6-14) Blood Urea Nitrogen 14mg/dL (7-20) Creatinine 0.9mg/dL (0.6-1.0) Estimated GFR (Cockcroft-Gault) 72.9 Glucose Level 91mg/dL (70-99) Calcium Level 9.4mg/dL (8.5-10.1) Microbiology 12/20/16 Urine Culture - Preliminary, Resulted 12/20/16 Urine Culture Result 1 (RYLEE) - Preliminary, Resulted Medications Current Medications Ceftriaxone Sodium (Rocephin 1gm Ivpb For Omni) 50 ml @ 100 mls/hr 1X ONCE IV Last administered on 12/20/16 12:20; Start 12/20/16 at 12:15; Stop 12/20/16 at 12:44; Status DC Ondansetron HCl (Zofran) 4 mg PRN Q8HRS PRN IV NAUSEA/VOMITING; Start 12/20/16 at 12:15; Stop 12/20/16 at 14:51; Status DC Acetaminophen (Tylenol) 650 mg PRN Q4HRS PRN PO FEVER; Start 12/20/16 at 12:15 ; Stop 12/21/16 at 12:14; Status DC Ondansetron HCl (Zofran) 4 mg PRN Q6HRS PRN IV NAUSEA/VOMITING; Start 12/20/16 at 14:49 Aspirin (Children'S Aspirin) 81 mg DAILY PO Last administered on 12/22/16 09: 41; Start 12/21/16 at 09:00 Donepezil HCl (Aricept) 10 mg QHS PO Last administered on 12/21/16 21:04; Start 12/20/16 at 21:00 Levetiracetam (Keppra) 500 mg BID PO ; Start 12/20/16 at 21:00; Stop 12/20/16 at 21:00; Status DC Lisinopril (Prinivil) 20 mg DAILY PO Last administered on 12/22/16 09:41; Start 12/21/16 at 09:00 Memantine (Namenda) 10 mg BID PO Last administered on 12/22/16 09:42; Start at 21:00 Simvastatin (Zocor) 20 mg QHS PO Last administered on 12/21/16 21:04; Start at 21:00 Losartan Potassium (Cozaar) 100 mg DAILY PO Last administered on 12/22/16 09: 41; Start 12/21/16 at 09:00 Nifedipine 90 mg 90 mg DAILY PO Last administered on 12/22/16 09:40; Start at 09:00 Ceftriaxone Sodium/Sodium Chloride (Rocephin/Iv Sodium Chloride 0.9% 50ml) 50 ml @ 100 mls/hr Q24H IV Last administered on 12/21/16 12:05; Start 12/21/16 at 12:00 Hydrochlorothiazide (Microzide) 12.5 mg DAILY PO Last administered on 09:42; Start 12/21/16 at 09:00 Levetiracetam (Keppra) 750 mg BID PO Last administered on 12/22/16 09:42; Start 12/20/16 at 21:00 Active Scripts Active Reported Aricept (Donepezil Hcl) 10 Mg Tablet 1 Tab PO QHS Zocor (Simvastatin) 20 Mg Tablet 1 Tab PO QHS Prinivil (Lisinopril) 20 Mg Tablet 1 Tab PO DAILY Nifedipine Er (Nifedipine) 90 Mg Tab.er.24 90 Mg PO DAILY Aspirin 81 Mg Tab.chew 1 Tab PO DAILY Losartan-Hctz 100-12.5 Mg Tab (Losartan/Hydrochlorothiazide) 1 Each Tablet 1 Tab PO DAILY Namenda (Memantine Hcl) 10 Mg Tablet 1 Tab PO BID Keppra (Levetiracetam) 500 Mg Tablet 1.5 Tab PO BID Vitals/I & O Vital Sign - Last 24 Hours 12/21/16 12/21/16 12/21/16 12/21/16 15:00 19:40 20:00 23:30 Temp 98.3 97.7 96.6 98.3 97.7 96.6 Pulse 70 73 65 Resp 18 16 16 B/P 110/75 106/48 125/65 Pulse Ox 97 94 96 O2 Delivery Room Air Room Air Room Air Room Air 12/22/16 12/22/16 12/22/16 12/22/16 03:25 07:00 08:00 09:40 Temp 97.7 97.2 97.7 97.2 Pulse 70 61 61 Resp 16 17 B/P 131/75 115/69 115/69 Pulse Ox 98 97 O2 Delivery Room Air Room Air Room Air 12/22/16 12/22/16 12/22/16 09:41 09:41 10:58 Temp 97.9 97.9 Pulse 61 61 75 Resp 17 B/P 115/69 115/69 139/61 Pulse Ox 98 O2 Delivery Room Air Intake and Output 12/21/16 12/21/16 12/22/16 15:00 23:00 07:00 Intake Total 380 ml Balance 380 ml MURTAZA ALEMAN MD Dec 22, 2016 12:38
[2016-12-22] MEDS: CEFTRIAXONE SODIUM 1 GM in IV NORMAL SALINE 50ML 50 ML IV SCH (12:44)
[2016-12-22 15:06] VITALS: BP 128/70
[2016-12-22 19:21] VITALS: BP 125/61
[2016-12-22] MEDS: SIMVASTATIN 20 MG TABLET PO SCH (20:37)
[2016-12-22] MEDS: DONEPEZIL HCL 10 MG TABLET. PO SCH (20:37)
[2016-12-22 23:33] VITALS: BP 113/59
[2016-12-23 03:00] VITALS: BP 127/66
[2016-12-23 07:00] VITALS: BP 142/69
[2016-12-23] MEDS: NIFEDIPINE ER 30 MG TAB.ER.24H PO SCH ×2 (09:00→09:52)
[2016-12-23] MEDS: MEMANTINE 10 MG TABLET. PO SCH ×2 (09:52→19:43)
[2016-12-23] MEDS: LEVETIRACETAM 500 MG TABLET PO SCH ×2 (09:52→19:43)
[2016-12-23] MEDS: LISINOPRIL 20 MG TABLET PO SCH (09:53)
[2016-12-23] MEDS: HYDROCHLOROTHIAZIDE 12.5 MG CAPSULE. PO SCH (09:53)
[2016-12-23] MEDS: ASPIRIN 81 MG TAB.CHEW PO SCH (09:53)
[2016-12-23] MEDS: LOSARTAN POTASSIUM 50 MG TABLET. PO SCH (09:53)
[2016-12-23 11:00] VITALS: BP 133/67
[2016-12-23] MEDS: CEFTRIAXONE SODIUM 1 GM in IV NORMAL SALINE 50ML 50 ML IV SCH (13:01)
--- NOTE | 2016-12-23 13:53 | PDOC ---
PROGRESS NOTES Chief Complaint Chief Complaint 1. Ec elvira UTI in a geriatric WATERS SENSITIVE 2, Gen weakness 3. Metabolic encephalopathy sec to dementia and infection 4. HTN 5. Advanced dementia 6. Allergy to PCN but tolerated rocephin fine 7. Hypernatremia sec to poor pO History of Present Illness History of Present Illness NA 150s Poor pO intake if not being fed Urine cx out, GNR waters sensitive ALlergy to PCN but tolerating rocephin fine PLAN: COnt iV rocpehin WIll shiftc to PO on dc Dtr now open to [facility] hopefully on PO augmentin Updated dtr re high sodium from poor access to water as she does not ask for it - understands If pt stays over the weekend for whatever reason then can do d5 water and start some insulin - will consider this for now Vitals Vitals Vital Signs Date Time Temp Pulse Resp B/P Pulse Ox O2 Delivery O2 Flow Rate FiO2 12/23/16 11:00 97.7 63 18 133/67 97 Room Air 97.7 Physical Exam General: Alert, Cooperative, No acute distress Extremities: No clubbing, No cyanosis, No edema, Normal pulses, No tenderness/ swelling Skin: No rashes, No breakdown, No significant lesion Review of Systems Review of Systems demented Assessment and Plan Assessmemt and Plan Problems Medical Problems: (1) Unable to ambulate Status: Acute (2) UTI (urinary tract infection) Status: Acute (3) Weakness Status: Acute Problems: Comment Review of Relevant I have reviewed the following items adam (where applicable) has been applied. Labs Laboratory Tests Test 12/22/16 03:52 White Blood Count 4.2x10^3/uL (4.0-11.0) Red Blood Count 4.12x10^6/uL (3.50-5.40) Hemoglobin 12.5g/dL (12.0-15.5) Hematocrit 38.1% (36.0-47.0) Mean Corpuscular Volume 93fL (79-100) Mean Corpuscular Hemoglobin 30pg (25-35) Mean Corpuscular Hemoglobin Concent 33g/dL (31-37) Red Cell Distribution Width 12.8% (11.5-14.5) Platelet Count 149x10^3/uL (140-400) Neutrophils (%) (Auto) 51% (31-73) Lymphocytes (%) (Auto) 34% (24-48) Monocytes (%) (Auto) 8% (0-9) Eosinophils (%) (Auto) 6% (0-3) Basophils (%) (Auto) 1% (0-3) Neutrophils # (Auto) 2.1x10^3uL (1.8-7.7) Lymphocytes # (Auto) 1.4x10^3/uL (1.0-4.8) Monocytes # (Auto) 0.4x10^3/uL (0.0-1.1) Eosinophils # (Auto) 0.3x10^3/uL (0.0-0.7) Basophils # (Auto) 0.0x10^3/uL (0.0-0.2) Sodium Level 150mmol/L (136-145) Potassium Level 3.9mmol/L (3.5-5.1) Chloride Level 112mmol/L (98-107) Carbon Dioxide Level 27mmol/L (21-32) Anion Gap 11 (6-14) Blood Urea Nitrogen 14mg/dL (7-20) Creatinine 0.9mg/dL (0.6-1.0) Estimated GFR (Cockcroft-Gault) 72.9 Glucose Level 91mg/dL (70-99) Calcium Level 9.4mg/dL (8.5-10.1) Microbiology 12/20/16 Urine Culture - Final, Complete 12/20/16 Urine Culture Result 1 (RYLEE) - Final, Complete 12/20/16 Antimicrobic Susceptibility - Final, Complete Medications Current Medications Ceftriaxone Sodium (Rocephin 1gm Ivpb For Omni) 50 ml @ 100 mls/hr 1X ONCE IV Last administered on 12/20/16t 12:20; Start 12/20/16 at 12:15; Stop 12/20/16 at 12:44; Status DC Ondansetron HCl (Zofran) 4 mg PRN Q8HRS PRN IV NAUSEA/VOMITING; Start 12/20/16 at 12:15; Stop 12/20/16 at 14:51; Status DC Acetaminophen (Tylenol) 650 mg PRN Q4HRS PRN PO FEVER; Start 12/20/16 at 12:15 ; Stop 12/21/16 at 12:14; Status DC Ondansetron HCl (Zofran) 4 mg PRN Q6HRS PRN IV NAUSEA/VOMITING; Start 12/20/16 at 14:49 Aspirin (Children'S Aspirin) 81 mg DAILY PO Last administered on 12/23/16 09: 53; Start 12/21/16 at 09:00 Donepezil HCl (Aricept) 10 mg QHS PO Last administered on 12/22/16 20:37; Start 12/20/16 at 21:00 Levetiracetam (Keppra) 500 mg BID PO ; Start 12/20/16 at 21:00; Stop 12/20/16 at 21:00; Status DC Lisinopril (Prinivil) 20 mg DAILY PO Last administered on 12/23/16 09:53; Start 12/21/16 at 09:00 Memantine (Namenda) 10 mg BID PO Last administered on 12/23/16 09:52; Start at 21:00 Simvastatin (Zocor) 20 mg QHS PO Last administered on 12/22/16 20:37; Start at 21:00 Losartan Potassium (Cozaar) 100 mg DAILY PO Last administered on 12/23/16 09: 53; Start 12/21/16 at 09:00 Nifedipine 90 mg 90 mg DAILY PO Last administered on 12/22/16 09:40; Start at 09:00 Ceftriaxone Sodium/Sodium Chloride (Rocephin/Iv Sodium Chloride 0.9% 50ml) 50 ml @ 100 mls/hr Q24H IV Last administered on 12/23/16 13:01; Start 12/21/16 at 12:00 Hydrochlorothiazide (Microzide) 12.5 mg DAILY PO Last administered on 09:53; Start 12/21/16 at 09:00 Levetiracetam (Keppra) 750 mg BID PO Last administered on 12/23/16 09:52; Start 12/20/16 at 21:00 Active Scripts Active Reported Aricept (Donepezil Hcl) 10 Mg Tablet 1 Tab PO QHS Zocor (Simvastatin) 20 Mg Tablet 1 Tab PO QHS Prinivil (Lisinopril) 20 Mg Tablet 1 Tab PO DAILY Nifedipine Er (Nifedipine) 90 Mg Tab.er.24 90 Mg PO DAILY Aspirin 81 Mg Tab.chew 1 Tab PO DAILY Losartan-Hctz 100-12.5 Mg Tab (Losartan/Hydrochlorothiazide) 1 Each Tablet 1 Tab PO DAILY Namenda (Memantine Hcl) 10 Mg Tablet 1 Tab PO BID Keppra (Levetiracetam) 500 Mg Tablet 1.5 Tab PO BID Vitals/I & O Vital Sign - Last 24 Hours 12/22/16 12/22/16 12/22/16 12/22/16 15:06 19:21 20:00 23:33 Temp 97.7 97.5 97.9 97.7 97.5 97.9 Pulse 69 62 61 Resp 16 18 18 B/P 128/70 125/61 113/59 Pulse Ox 97 96 96 O2 Delivery Room Air Room Air Room Air Room Air 12/23/16 12/23/16 12/23/16 12/23/16 03:00 07:00 08:00 09:00 Temp 97.6 97.7 97.6 97.7 Pulse 62 62 62 Resp 18 18 B/P 127/66 142/69 142/69 Pulse Ox 95 97 O2 Delivery Room Air Room Air Room Air 12/23/16 12/23/16 12/23/16 09:53 09:53 11:00 Temp 97.7 97.7 Pulse 62 62 63 Resp 18 B/P 142/69 142/69 133/67 Pulse Ox 97 O2 Delivery Room Air MURTAZA ALEMAN MD Dec 23, 2016 13:53
[2016-12-23] MEDS ORDERED: DEXTROSE 50% 25 GM / 50ML DISP.SYRIN. IV PRN (14:15)
[2016-12-23] MEDS: IV DEXTROSE 5% 1,000 ML IV SCH (14:15)
[2016-12-23 15:00] VITALS: BP 122/69
[2016-12-23] MEDS: INSULIN ASPART 300 UNITS/3 ML INSULN.PEN SQ SCH (17:00)
[2016-12-23] MEDS: SIMVASTATIN 20 MG TABLET PO SCH (19:43)
[2016-12-23] MEDS: DONEPEZIL HCL 10 MG TABLET. PO SCH (19:43)
[2016-12-23 19:55] VITALS: BP 115/59
[2016-12-23 23:44] VITALS: BP 115/65
[2016-12-24 03:23] VITALS: BP 127/67
[2016-12-24] MEDS: IV DEXTROSE 5% 1,000 ML IV SCH (03:31)
[2016-12-24 04:32] LABS: CALCIUM 8.9 mg/dL (8.5-10.1); CREATININE 0.8 mg/dL (0.6-1.0); GFR 83.5; POTASSIUM 3.8 mmol/L (3.5-5.1)
[2016-12-24 07:52] VITALS: BP 154/75
[2016-12-24] MEDS: INSULIN ASPART 300 UNITS/3 ML INSULN.PEN SQ SCH (08:00)
[2016-12-24] MEDS: HYDROCHLOROTHIAZIDE 12.5 MG CAPSULE. PO SCH ×3 (09:00→14:11)
[2016-12-24] MEDS: NIFEDIPINE ER 30 MG TAB.ER.24H PO SCH ×3 (09:00→14:11)
[2016-12-24] MEDS: LEVETIRACETAM 500 MG TABLET PO SCH ×4 (09:00→21:14)
[2016-12-24] MEDS: LISINOPRIL 20 MG TABLET PO SCH ×3 (09:00→14:12)
[2016-12-24] MEDS: LOSARTAN POTASSIUM 50 MG TABLET. PO SCH ×3 (09:00→14:11)
[2016-12-24] MEDS: ASPIRIN 81 MG TAB.CHEW PO SCH ×3 (09:00→14:11)
[2016-12-24] MEDS: MEMANTINE 10 MG TABLET. PO SCH ×4 (09:00→21:00)
[2016-12-24 11:00] VITALS: BP 141/94
--- NOTE | 2016-12-24 13:33 | PDOC ---
PROGRESS NOTES Chief Complaint Chief Complaint 1. E coli UTI in a geriatric [employer] 2, Gen weakness 3. Metabolic encephalopathy sec to dementia and infection 4. HTN 5. Advanced dementia 6. Allergy to PCN but tolerated rocephin fine 7. Hypernatremia sec to poor pO History of Present Illness History of Present Illness NA better 142 Eating lunch with dtr - dtr cfeeds her NO issues - just waiting for [employer] approval for NSU PLAN: may dc dextrsoe iVF and ssi Shift to pO Augmentin\ Dc penny hopefully to SNU Dw pt, dtr and SW Vitals Vitals Vital Signs Date Time Temp Pulse Resp B/P Pulse Ox O2 Delivery O2 Flow Rate FiO2 12/24/16 11:00 97.8 67 20 141/94 97 Room Air 97.8 Physical Exam General: Alert, Cooperative, No acute distress Extremities: No clubbing, No cyanosis, No edema, Normal pulses, No tenderness/ swelling Skin: No rashes, No breakdown, No significant lesion Labs LABS Laboratory Tests Test 12/23/16 17:28 12/23/16 20:45 12/24/16 03:32 12/24/16 07:55 Glucose (Fingerstick) 100mg/dL (70-99) 129mg/dL (70-99) 199mg/dL (70-99) Sodium Level 142mmol/L (136-145) Potassium Level 3.8mmol/L (3.5-5.1) Chloride Level 108mmol/L (98-107) Carbon Dioxide Level 27mmol/L (21-32) Anion Gap 7 (6-14) Blood Urea Nitrogen 13mg/dL (7-20) Creatinine 0.8mg/dL (0.6-1.0) Estimated GFR (Cockcroft-Gault) 83.5 Glucose Level 109mg/dL (70-99) Calcium Level 8.9mg/dL (8.5-10.1) Test 12/24/16 11:45 Glucose (Fingerstick) 122mg/dL (70-99) Review of Systems Review of Systems has dementia Assessment and Plan Assessmemt and Plan Problems Medical Problems: (1) Unable to ambulate Status: Acute (2) UTI (urinary tract infection) Status: Acute (3) Weakness Status: Acute Problems: Comment Review of Relevant I have reviewed the following items adam (where applicable) has been applied. Labs Laboratory Tests Test 12/23/16 17:28 12/23/16 20:45 12/24/16 03:32 12/24/16 07:55 Glucose (Fingerstick) 100mg/dL (70-99) 129mg/dL (70-99) 199mg/dL (70-99) Sodium Level 142mmol/L (136-145) Potassium Level 3.8mmol/L (3.5-5.1) Chloride Level 108mmol/L (98-107) Carbon Dioxide Level 27mmol/L (21-32) Anion Gap 7 (6-14) Blood Urea Nitrogen 13mg/dL (7-20) Creatinine 0.8mg/dL (0.6-1.0) Estimated GFR (Cockcroft-Gault) 83.5 Glucose Level 109mg/dL (70-99) Calcium Level 8.9mg/dL (8.5-10.1) Test 12/24/16 11:45 Glucose (Fingerstick) 122mg/dL (70-99) Laboratory Tests Test 12/23/16 17:28 12/23/16 20:45 12/24/16 03:32 12/24/16 07:55 Glucose (Fingerstick) 100mg/dL (70-99) 129mg/dL (70-99) 199mg/dL (70-99) Sodium Level 142mmol/L (136-145) Potassium Level 3.8mmol/L (3.5-5.1) Chloride Level 108mmol/L (98-107) Carbon Dioxide Level 27mmol/L (21-32) Anion Gap 7 (6-14) Blood Urea Nitrogen 13mg/dL (7-20) Creatinine 0.8mg/dL (0.6-1.0) Estimated GFR (Cockcroft-Gault) 83.5 Glucose Level 109mg/dL (70-99) Calcium Level 8.9mg/dL (8.5-10.1) Test 12/24/16 11:45 Glucose (Fingerstick) 122mg/dL (70-99) Microbiology 12/20/16 Urine Culture - Final, Complete 12/20/16 Urine Culture Result 1 (RYLEE) - Final, Complete 12/20/16 Antimicrobic Susceptibility - Final, Complete Medications Current Medications Ceftriaxone Sodium (Rocephin 1gm Ivpb For Omni) 50 ml @ 100 mls/hr 1X ONCE IV Last administered on 12/20/16 12:20; Start 12/20/16 at 12:15; Stop 12/20/16 at 12:44; Status DC Ondansetron HCl (Zofran) 4 mg PRN Q8HRS PRN IV NAUSEA/VOMITING; Start 12/20/16 at 12:15; Stop 12/20/16 at 14:51; Status DC Acetaminophen (Tylenol) 650 mg PRN Q4HRS PRN PO FEVER; Start 12/20/16 at 12:15 ; Stop 12/21/16 at 12:14; Status DC Ondansetron HCl (Zofran) 4 mg PRN Q6HRS PRN IV NAUSEA/VOMITING; Start 12/20/16 at 14:49 Aspirin (Children'S Aspirin) 81 mg DAILY PO Last administered on 12/23/16 09: 53; Start 12/21/16 at 09:00 Donepezil HCl (Aricept) 10 mg QHS PO Last administered on 12/23/16 19:43; Start 12/20/16 at 21:00 Levetiracetam (Keppra) 500 mg BID PO ; Start 12/20/16 at 21:00; Stop 12/20/16 at 21:00; Status DC Lisinopril (Prinivil) 20 mg DAILY PO Last administered on 12/23/16 09:53; Start 12/21/16 at 09:00 Memantine (Namenda) 10 mg BID PO Last administered on 12/23/16 19:43; Start at 21:00 Simvastatin (Zocor) 20 mg QHS PO Last administered on 12/23/16 19:43; Start at 21:00 Losartan Potassium (Cozaar) 100 mg DAILY PO Last administered on 12/23/16 09: 53; Start 12/21/16 at 09:00 Nifedipine 90 mg 90 mg DAILY PO Last administered on 12/22/16 09:40; Start at 09:00 Ceftriaxone Sodium/Sodium Chloride (Rocephin/Iv Sodium Chloride 0.9% 50ml) 50 ml @ 100 mls/hr Q24H IV Last administered on 12/23/16 13:01; Start 12/21/16 at 12:00 Hydrochlorothiazide (Microzide) 12.5 mg DAILY PO Last administered on 09:53; Start 12/21/16 at 09:00 Levetiracetam 750 mg 750 mg BID PO Last administered on 12/23/16 19:43; Start 12/20/16 at 21:00 Dextrose 1,000 ml @ 75 mls/hr [id number] IV Last administered on 12/24/16 03:31 ; Start 12/23/16 at 14:00 Insulin Aspart (Novolog) 0-7 UNITS TIDWMEALS SQ ; Start 12/23/16 at 17:00 Dextrose 12.5 gm PRN Q15MIN PRN IV SEE COMMENTS; Start 12/23/16 at 14:15 Active Scripts Active Reported Aricept (Donepezil Hcl) 10 Mg Tablet 1 Tab PO QHS Zocor (Simvastatin) 20 Mg Tablet 1 Tab PO QHS Prinivil (Lisinopril) 20 Mg Tablet 1 Tab PO DAILY Nifedipine Er (Nifedipine) 90 Mg Tab.er.24 90 Mg PO DAILY Aspirin 81 Mg Tab.chew 1 Tab PO DAILY Losartan-Hctz 100-12.5 Mg Tab (Losartan/Hydrochlorothiazide) 1 Each Tablet 1 Tab PO DAILY Namenda (Memantine Hcl) 10 Mg Tablet 1 Tab PO BID Keppra (Levetiracetam) 500 Mg Tablet 1.5 Tab PO BID Vitals/I & O Vital Sign - Last 24 Hours 12/23/16 12/23/16 12/23/16 12/23/16 15:00 19:55 20:00 23:44 Temp 97.9 97.6 97.9 97.9 97.6 97.9 Pulse 66 65 58 Resp 18 18 20 B/P 122/69 115/59 115/65 Pulse Ox 95 96 99 O2 Delivery Room Air Room Air Room Air Room Air 12/24/16 12/24/16 12/24/16 12/24/16 03:23 07:52 08:00 09:00 Temp 97.7 98.1 97.7 98.1 Pulse 53 68 68 Resp 20 20 B/P 127/67 154/75 154/75 Pulse Ox 99 97 O2 Delivery Room Air Room Air Room Air 12/24/16 12/24/16 12/24/16 09:00 09:00 11:00 Temp 97.8 97.8 Pulse 68 68 67 Resp 20 B/P 154/75 154/75 141/94 Pulse Ox 97 O2 Delivery Room Air Intake and Output 12/23/16 12/23/16 12/24/16 15:00 23:00 07:00 Intake Total 460 ml 120 ml Balance 460 ml 120 ml MURTAZA ALEMAN MD Dec 24, 2016 13:33
[2016-12-24 15:00] VITALS: BP 106/33
[2016-12-24 19:40] VITALS: BP 98/46
[2016-12-24] MEDS: AMOXICILLIN/K CLAV 875/125MG TABLET. PO SCH (21:13)
[2016-12-24] MEDS: DONEPEZIL HCL 10 MG TABLET. PO SCH (21:14)
[2016-12-24] MEDS: SIMVASTATIN 20 MG TABLET PO SCH (21:14)
[2016-12-24 23:09] VITALS: BP 99/53
[2016-12-25 03:18] VITALS: BP 111/67
[2016-12-25 07:00] VITALS: BP 112/59
[2016-12-25] MEDS: NIFEDIPINE ER 30 MG TAB.ER.24H PO SCH (09:35)
[2016-12-25] MEDS: MEMANTINE 10 MG TABLET. PO SCH (09:35)
[2016-12-25] MEDS: LEVETIRACETAM 500 MG TABLET PO SCH (09:35)
[2016-12-25] MEDS: LOSARTAN POTASSIUM 50 MG TABLET. PO SCH (09:36)
[2016-12-25] MEDS: ASPIRIN 81 MG TAB.CHEW PO SCH (09:36)
[2016-12-25] MEDS: LISINOPRIL 20 MG TABLET PO SCH (09:36)
[2016-12-25] MEDS: AMOXICILLIN/K CLAV 875/125MG TABLET. PO SCH (09:36)
[2016-12-25] MEDS: HYDROCHLOROTHIAZIDE 12.5 MG CAPSULE. PO SCH (09:36)
[2016-12-25 11:00] VITALS: BP 115/61
--- NOTE | 2016-12-25 14:17 | PDOC3 ---
Discharge Summary Visit Information Date of Admission: Dec 20, 2016 Date of Discharge: Dec 25, 2016 Admitting Diagnosis Comment: 1. E coli UTI in a geriatric [employer] 2, Gen weakness 3. Metabolic encephalopathy sec to dementia and infection 4. HTN 5. Advanced dementia 6. Allergy to PCN but tolerated rocephin fine 7. Hypernatremia sec to poor pO Final Diagnosis Problems Medical Problems: (1) Unable to ambulate Status: Acute (2) UTI (urinary tract infection) Status: Acute (3) Weakness Status: Acute Brief Hospital Course Allergies Allergies Coded Allergies Type Severity Reaction Last Updated Verified Penicillins Allergy Intermediate 12/23/16 Yes Sulfa (Sulfonamide Antibiotics) Allergy Intermediate Itching 12/20/16 Yes Insulins Adverse Reaction Intermediate 12/20/16 Yes Vital Signs Vital Signs Date Time Temp Pulse Resp B/P Pulse Ox O2 Delivery O2 Flow Rate FiO2 12/25/16 11:00 98.0 78 18 115/61 97 Room Air 98.0 Lab Results Laboratory Tests Test 12/23/16 17:28 12/23/16 20:45 12/24/16 03:32 12/24/16 07:55 Glucose (Fingerstick) 100mg/dL (70-99) 129mg/dL (70-99) 199mg/dL (70-99) Sodium Level 142mmol/L (136-145) Potassium Level 3.8mmol/L (3.5-5.1) Chloride Level 108mmol/L (98-107) Carbon Dioxide Level 27mmol/L (21-32) Anion Gap 7 (6-14) Blood Urea Nitrogen 13mg/dL (7-20) Creatinine 0.8mg/dL (0.6-1.0) Estimated GFR (Cockcroft-Gault) 83.5 Glucose Level 109mg/dL (70-99) Calcium Level 8.9mg/dL (8.5-10.1) Test 12/24/16 11:45 12/24/16 16:40 12/24/16 20:57 12/25/16 07:13 Glucose (Fingerstick) 122mg/dL (70-99) 141mg/dL (70-99) 105mg/dL (70-99) 83mg/dL (70-99) Laboratory Tests Test 12/24/16 16:40 12/24/16 20:57 12/25/16 07:13 Glucose (Fingerstick) 141mg/dL (70-99) 105mg/dL (70-99) 83mg/dL (70-99) Brief Hospital Course Ms. Paige is a 81 old AA female admitted for gen weakness, lives at home with dtr who is very involved with her care. FOund to have uTI,. PCN listed as allergy but tolerated rocephin fine, E coli that is waters sensitive on urine cx. Shifted to PO augmentin and tolerated that fine too without adverse reaction, Some hypernatremia Na 150s bec of poor pO (needs to be aided in feeding), but better with d5w. DispO; SNU COnsults: none Dw dtr and rn and case Dc 35 mins cumulative Pt seen and examined Discharge Information Condition at Discharge: Improved, Stable Disposition/Orders: Other (snu) Scheduled Aspirin (Aspirin) 1 TAB PO DAILY (Reported) Donepezil Hcl (Aricept) 1 TAB PO QHS (Reported) Levetiracetam (Keppra) 1.5 TAB PO BID (Reported) Lisinopril (Prinivil) 1 TAB PO DAILY (Reported) Losartan/Hydrochlorothiazide (Losartan-Hctz 100-12.5 Mg Tab) 1 TAB PO DAILY ( Reported) Memantine Hcl (Namenda) 1 TAB PO BID (Reported) Nifedipine (Nifedipine Er) 90 MG PO DAILY (Reported) Simvastatin (Zocor) 1 TAB PO QHS (Reported) MURTAZA ALEMAN MD Dec 25, 2016 14:17
== END 2016-12-25 15:15 | DRG 689 ==
LOC: ER 08:32 → 6 SOUTH 12:04
PROVIDERS: ADMIT Internal Medicine; ATTEND Internal Medicine
DX: N39.0 Urinary tract infection, site not specified (principal); G93.41 Metabolic encephalopathy; E87.0 Hyperosmolality and hypernatremia; B96.20 Unspecified Escherichia coli [E. coli] as the cause of diseases classified elsewhere; E78.00 Pure hypercholesterolemia, unspecified; E78.5 Hyperlipidemia, unspecified; F03.90 Unspecified dementia, unspecified severity, without behavioral disturbance, psychotic disturbance, mood disturbance, and anxiety; R56.9 Unspecified convulsions; I10 Essential (primary) hypertension; Z88.0 Allergy status to penicillin; Z88.2 Allergy status to sulfonamides; Z88.8 Allergy status to other drugs, medicaments and biological substances
CPT/HCPCS: 36415; 70450; 71010; 80048; 80053; 81001; 82947; 85027; 87086; 87186; 93005; 96365; J0690; J0696; J1815; 97110; 97116; 97530; 97535; 99285-25